=== PATIENT | female | born 1975 | race Caucasian/White ===

== ENCOUNTER → 2017-10-01 | Outpatient (CLI) | payer OTHER ==
[~2017-10-01] MED LIST: MOTRIN 600600 MG/TAB PO; PERCOCET 325 MG1 TA2 PO; PRENATAL1 TA1 PO
== END ==
LOC: MC.RAD 13:40
DX: Z12.31 Encounter for screening mammogram for malignant neoplasm of breast (principal)

== ENCOUNTER → 2019-11-24 | Outpatient (CLI) | payer OTHER | LOC: MC.RAD 11-10 11:00 | DX: Z12.31 Encounter for screening mammogram for malignant neoplasm of breast (principal) ==

== ENCOUNTER → 2021-12-12 | Outpatient (CLI) | payer OTHER | LOC: MC.RAD 14:27 | DX: Z12.31 Encounter for screening mammogram for malignant neoplasm of breast (principal); N63.10 Unspecified lump in the right breast, unspecified quadrant ==

== ENCOUNTER → 2021-12-18 | Outpatient (CLI) | payer OTHER | LOC: MC.RAD 14:56 | DX: N60.01 Solitary cyst of right breast (principal) ==

== ENCOUNTER → 2023-11-12 | Outpatient (CLI) | payer BC | LOC: MC.RAD 10:05 | DX: Z12.31 Encounter for screening mammogram for malignant neoplasm of breast (principal); N63.10 Unspecified lump in the right breast, unspecified quadrant ==

== ENCOUNTER → 2023-11-14 | Outpatient (CLI) | payer BC | LOC: MC.RAD 06:59 | DX: N60.01 Solitary cyst of right breast (principal) ==

== ENCOUNTER → 2024-06-15 | Outpatient (CLI) | payer BC | LOC: MHCPAIN 11:11 | DX: M79.605 Pain in left leg (principal); M75.41 Impingement syndrome of right shoulder | CPT/HCPCS: G0463 ==